=== PATIENT | female | born 1960 | race American Indian/Alaskan Native ===

== ENCOUNTER 2018-05-23 06:14 | Emergency (ER) | payer MEDICAID, OTHER ==
[2018-05-23 06:52] VITALS: TEMP 98.1
[2018-05-23] MEDS ORDERED: Lidocaine 5% Patch TD STA (07:29)
--- NOTE | 2018-05-23 07:33 | ED PDOC ---
Arrival/HPI - General Chief Complaint: Back Pain Time Seen by Provider: 05/23/18 07:17 Historian: Patient - History of Present Illness Narrative History of Present Illness (Text): 05/23/18 07:27 58 year old female, whose past medical history includes hypertension and occasionally elevated cholesterol, who presents to the emergency department complaining of aching waxing and waning pain in lower back and top left of buttocks for the past 6-7 months, worse past few days. Patient notes the pain radiates down to the back of her left leg. Patient states the pain is worse at night and interrupts her sleep, noting exacerbation when trying to turn over. Patient states she takes Percocet, with mild relief. Patient notes some tingling and numbness, but states she is able to ambulate normal. Patient denies any known drug allergies, fevers, chills, chest pain, shortness of breath , abdominal pain, nausea, vomiting, diarrhea, neck pain, urinary symptoms, headache, dizziness, or any other complaint. PMD: Dr. Cory Barros Time/Duration: Other (last couple of weeks) Symptom Onset: Other (waxing and waning for past 6-7 months) Symptom Course: Unchanged Activities at Onset: Light Past Medical History - Provider Review Nursing Documentation Reviewed: Yes - Travel History Have you recently traveled outside [place] w/in the past 3 mons?: No - Infectious Disease Hx of Infectious Diseases: None - Reproductive Menopause: Yes - Cardiac Hx Hypertension: Yes - Musculoskeletal/Rheumatological Hx Arthritis: Yes - Psychiatric Hx Substance Use: No - Surgical History Hx Section: Yes (x3) Hx Hysterectomy: Yes (partial) - Anesthesia Hx Anesthesia: Yes Hx Anesthesia Reactions: No Hx Malignant Hyperthermia: No Family/Social History - Physician Review Nursing Documentation Reviewed: Yes Family/Social History: No Known Family HX Smoking Status: Former Smoker Hx Alcohol Use: No Hx Substance Use: No Allergies/Home Meds Allergies/Adverse Reactions: Allergies No Known Allergies Allergy (Verified 05/23/18 06:52) Home Medications: Home Meds Medication Instructions Recorded Confirmed Acetaminophen/Oxycodone Hydr 1 tab PO DAILY 05/23/18 05/23/18 [Percocet 10/325 mg Tab] Aspirin [Ecotrin] 1 tab PO DAILY 05/23/18 05/23/18 Cholecalciferol [Vitamin D 1000 IU] 10,000 iu IM DIANE 05/23/18 05/23/18 amLODIPine [Norvasc] 1 tab PO DAILY 05/23/18 05/23/18 Review of Systems - Physician Review All systems were reviewed & negative as marked: Yes - Review of Systems Constitutional: Normal. absent: Fevers Eyes: Normal ENT: Normal Respiratory: Normal. absent: SOB, Cough Cardiovascular: Normal. absent: Chest Pain Gastrointestinal: Normal. absent: Abdominal Pain, Diarrhea, Nausea, Vomiting Genitourinary Female: Normal Musculoskeletal: Back Pain (lower back pain), Other (pain mainly in left upper buttocks, radiating down to back of left leg). absent: Normal Skin: Normal Neurological: Gait Changes (stiff walking). absent: Normal, Headache Endocrine: Normal Hemo/Lymphatic: Normal Psychiatric: Normal Physical Exam Vital Signs Reviewed: Yes Vital Signs Temp Pulse Resp BP Pulse Ox 05/23/18 08:22 74 18 134/77 99 05/23/18 06:47 98.1 F 81 21 147/92 H 98 Temperature: Afebrile Blood Pressure: Hypertensive Pulse: Regular Respiratory Rate: Normal Appearance: Positive for: Well-Appearing, Non-Toxic Pain Distress: Moderate Mental Status: Positive for: Alert and Oriented X 3 - Systems Exam Head: Present: Atraumatic, Normocephalic Pupils: Present: PERRL Extroacular Muscles: Present: EOMI Conjunctiva: Present: Normal Mouth: Present: Moist Mucous Membranes Neck: Present: Normal Range of Motion Respiratory/Chest: Present: Clear to Auscultation, Good Air Exchange. No: Respiratory Distress, Accessory Muscle Use Cardiovascular: Present: Regular Rate and Rhythm, Normal S1, S2. No: Murmurs Abdomen: No: Tenderness, Distention, Peritoneal Signs Back: Present: Normal Inspection. No: Pain with Leg Raise Upper Extremity: Present: Normal Inspection. No: Cyanosis, Edema Lower Extremity: Present: Tenderness (tenderness to left lower lumbar area), Other (negative leg recess, no ataxia). No: Normal Inspection, Edema Neurological: Present: GCS=15, CN II-XII Intact, Speech Normal, Gait Normal Skin: Present: Warm, Dry, Normal Color. No: Rashes Psychiatric: Present: Alert, Oriented x 3, Normal Insight, Normal Concentration Medical Decision Making ED Course and Treatment: 05/23/18 07:27 Impression: Carli Aguilar is a 58 year old female who presents to the Emergency department for waxing and waning lower back pain, worse last few weeks. DDx: Lumbar Radiculopathy, Sciatica, MSK Plan: -- Lidoderm -- Toradol -- Tylenol 325 mg -- Reassess and disposition Progress Notes: 05/23/18 07:27 Previous MRI results reviewed and recorded below, shows: Title: MRI, MR-Lumbar Spine W/O Exam Date: 04/11/2018 Impression: 1. No compression fracture, dislocation or acute bony pathology. 2. L2-L3 through L5-S1 DJD, central canal stenosis, neuroforaminal stenosis as detailed above. 3. Right renal cyst, left possible ovarian cyst, follow-up renal ultrasound, pelvic ultrasound evaluation advised. 05/23/18 09:22 Patient felt comfortable after medications. She is driving so we will hold off on muscle relaxants. She will make sure to follow up with her Primary Care doctor this week and to return to the ED if symptoms or any other concerns. - Medication Orders Current Medication Orders: Discontinued Medications Acetaminophen (Tylenol 325mg Tab) 975 mg PO STAT STA Stop: 05/23/18 07:31 Last Admin: 05/23/18 07:45 Dose: 975 mg [facility] Pain/Vitals Document 05/23/18 07:45 SHANE (Rec: 05/23/18 07:46 SHANE WATERS) Pain Reassessment Is This A Pain ReAssessment? No Sleep Is patient sleeping during reassessment? No Presence of Pain Presence of Pain Yes Pain Scale Used Pain Scale Used Numeric Location Intensity 8 Scale Used Numeric Ketorolac Tromethamine (Toradol) 30 mg IM STAT STA Stop: 05/23/18 07:29 Last Admin: 05/23/18 07:46 Dose: 30 mg MAR Pain Assessment Document 05/23/18 07:46 SHANE (Rec: 05/23/18 07:46 SHANE WATERS) Pain Reassessment Is this a pain reassessment? No Sleep Is patient sleeping during reassessment? No Presence of Pain Presence of Pain Yes IM Administration Charges Document 05/23/18 07:46 SHANE (Rec: 05/23/18 07:46 SHANE WATERS) Charges for Administration # of IM Administrations 1 Lidocaine (Lidoderm) 1 ea TD STAT STA Stop: 05/23/18 07:30 Last Admin: 05/23/18 07:46 Dose: 1 ea MAR Transdermal Patch Site Document 05/23/18 07:46 SHANE (Rec: 05/23/18 07:46 SHANE [id number]) Transdermal Patch Site Transdermal Patch Site Left Lower Back - Scribe Statement The provider has reviewed the documentation as recorded by the Scribe Teresa Fitzpatrick All medical record entries made by the Scribe were at my direction and personally dictated by me. I have reviewed the chart and agree that the record accurately reflects my personal performance of the history, physical exam, medical decision making, and the department course for this patient. I have also personally directed, reviewed, and agree with the discharge instructions and disposition. Disposition/Present on Arrival - Present on Arrival Any Indicators Present on Arrival: No History of DVT/PE: No History of Uncontrolled Diabetes: No Urinary Catheter: No History of Decub. Ulcer: No History Surgical Site Infection Following: None - Disposition Have Diagnosis and Disposition been Completed?: Yes Diagnosis: Sciatica Disposition: HOME/ ROUTINE Disposition Time: 07:30 Patient Problems: Current Active Problems Problem Status Onset Sciatica Acute Condition: GOOD Discharge Instructions (ExitCare): Sciatica (DC), Sciatica Exercises Additional Instructions: CARLI AGUILAR, thank you for letting us take care of you today. Your provider was Ari Sifuentes DO and you were treated for Sciatica. The emergency medical care you received today was directed at your acute symptoms. If you were prescribed any medication, please fill it and take as directed. It may take several days for your symptoms to resolve. Return to the Emergency Department if your symptoms worsen, do not improve, or if you have any other problems. Please contact your doctor or call one of the physicians/clinics you have been referred to that are listed on the Patient Visit Information form that is included in your discharge packet. Bring any paperwork you were given at discharge with you along with any medications you are taking to your follow up visit. Our treatment cannot replace ongoing medical care by a primary care provider outside of the emergency department. Thank you for allowing the [facility] team to be part of your care today. If you had an X-Ray or CT scan: A Radiologist will review the ED reading if any change in treatment is needed we will contact you. If you had a blood, urine, or wound culture: It will take several days for the results, if any change in treatment is needed we will contact you. If you had an STI test: It will take 48 hours for the results. Please call after 1 week if you have not heard back. Prescriptions: Cyclobenzaprine [Flexeril] 5 mg PO TID PRN #20 tab PRN Reason: Muscle Spasm Ibuprofen [Motrin] 600 mg PO Q6 PRN #30 tab PRN Reason: Pain, Moderate (4-7) Lidocaine 5% [Lidoderm] 1 ea TD DAILY PRN #4 patch PRN Reason: Pain, Moderate (4-7) Referrals: Kathy Moran MD [Staff Provider] - Follow up with primary Forms: [employer] Connect ([place]ajik), WORK NOTE
[2018-05-23 08:23] VITALS: BP 134/77; PULSE 74; RESP 18; O2SAT 99
== END 2018-05-23 08:22 | disposition home or self-care (01) ==
LOC: ED 06:14
DX: M54.30 Sciatica, unspecified side (principal); E78.00 Pure hypercholesterolemia, unspecified; I10 Essential (primary) hypertension; Z87.891 Personal history of nicotine dependence
CPT/HCPCS: 96372; 99282; J1885